=== PATIENT | male | born 1970 | race Caucasian/White ===

== ENCOUNTER 2020-03-03 10:37 | Emergency (ER) | payer OTHER ==
[~2020-03-03] VITALS: Ht 177.8 cm; Wt 73.1 kg
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
[2020-03-03 12:24] VITALS: BP 136/87
== END 2020-03-03 12:15 | disposition home or self-care (01) ==
LOC: FSED 11:32
DX: S60.222A Contusion of left hand, initial encounter (principal); M54.2 Cervicalgia; V53.5XXA Driver of pick-up truck or van injured in collision with car, pick-up truck or van in traffic accident, initial encounter; Y92.488 Other paved roadways as the place of occurrence of the external cause
CPT/HCPCS: 72125; 99283